=== PATIENT | female | born 1975 | race Two or more races ===

== ENCOUNTER 2019-07-16 22:49 | Emergency (ER) | payer OTHER ==
[~2019-07-16] VITALS: Ht 147.3 cm; Wt 56.7 kg
[2019-07-16] MEDS ORDERED: TOPROL XL25 M1 (23:16)
[2019-07-16] MEDS ORDERED: VASOTEC5 MG (23:16)
== END 2019-07-17 14:38 | disposition home or self-care (01) ==
LOC: ER 22:49
DX: K80.20 Calculus of gallbladder without cholecystitis without obstruction (principal); K80.70 Calculus of gallbladder and bile duct without cholecystitis without obstruction